=== PATIENT | male | born 1965 | race Caucasian/White ===

== ENCOUNTER 2017-03-24 10:20 | Day surgery (SDC) | payer MEDICARE, OTHER ==
[~2017-03-24] VITALS: Ht 177.8 cm; Wt 70.2 kg
[~2017-03-24 10:20] MED LIST: ALPR-475 PO; AMLO10TA2 PO; AMOX-291 PO; ASPI-496 PO; BACITRACIN 50,000 UNIT ONE; CALC0.25 PO; CARV-39 PO; CARV12.52 PO; CINA30TA2 PO; CLON0.1T PO; ERGO500017 PO; FEBU80TA2 PO; FOLI0.8T22 PO; FURO80TA3 PO; HEPARIN 1,000 UNITS/ML, 10ML ONE; HYDR-3240 PO; LOSA1TAB17 PO; OMEG1CAP6 PO; SERT100T5 PO; SEVE800T8 PO; SIMV20TA3 PO; [UNRECOGNIZED DRUG - REMARK]; metoprolol PO; vitamin D; zoloft
[2017-03-24 10:59] VITALS: BP 128/87
[2017-03-24] MEDS ORDERED: SODIUM CHLORIDE 0.9% 1,000 ML IV SCH (11:05)
[2017-03-24] MEDS ORDERED: OXYC10TA6 PO (11:36)
[2017-03-24] MEDS ORDERED: FENTANYL PF 100 MCG/2ML ONE ×3 (11:48→13:48)
[2017-03-24] MEDS ORDERED: MIDAZOLAM 1 MG/ML, 2ML ONE (11:49)
[2017-03-24 12:32] LABS: HEMATOCRIT 28.2 % (39.2-51.8); HEMOGLOBIN 9.5 g/dL (13.7-18.0); WHITE BLOOD COUNT 9.9 x10^3/uL (3.4-10)
[2017-03-24] MEDS ORDERED: EPHEDRINE 50 MG/ML, 1ML ONE (12:33)
[2017-03-24] MEDS ORDERED: CEFAZOLIN 1,000 MG ONE (12:33)
[2017-03-24] MEDS ORDERED: PHENYLEPHRINE 10 MG/ML ONE (12:33)
[2017-03-24] MEDS ORDERED: PROPOFOL 10 MG/ML, 20ML ONE (12:33)
[2017-03-24] MEDS ORDERED: SUCCINYLCHOLINE 20 MG/ML, 10ML ONE (12:33)
[2017-03-24] MEDS ORDERED: ROCURONIUM 10 MG/ML ONE (12:33)
[2017-03-24 12:49] LABS: ASPARTATE AMINO TRANSFERASE 7 U/L (15-37); BLOOD UREA NITROGEN 79 mg/dL (7-18)
[2017-03-24] MEDS ORDERED: BUPIVACAINE/EPI 0.5% 1:200K IM ONE (12:58)
[2017-03-24] MEDS ORDERED: METOCLOPRAMIDE 5 MG/ML, 2ML IV PRN (13:00)
[2017-03-24] MEDS ORDERED: OXYcodone 5 MG/5 ML ORAL.SOL UDC PO PRN (13:00)
[2017-03-24] MEDS ORDERED: HYDROmorphone 1 MG/ML, 1ML IV PRN (13:00)
[2017-03-24] MEDS ORDERED: hydrALAzine 20 MG/ML, 1ML IV PRN (13:00)
[2017-03-24] MEDS ORDERED: ONDANSETRON 2MG/ML, 2ML IVPush PRN (13:00)
[2017-03-24] MEDS ORDERED: LABETALOL 5MG/ML, 20ML IV PRN (13:00)
[2017-03-24] MEDS ORDERED: ACETAMINOPHEN 325 MG TABLET PO PRN (13:00)
[2017-03-24] MEDS ORDERED: ACETAMINOPHEN 650 MG/20.3 ML UDC ONE (13:47)
[2017-03-24] MEDS ORDERED: OXYcodone 5 MG/5 ML ORAL.SOL UDC ONE (13:48)
[2017-03-24] MEDS: FENTANYL PF 100 MCG/2ML IV PRN ×2 (13:53→14:01)
[2017-03-24] MEDS ORDERED: ONDANSETRON 2MG/ML, 2ML ONE (14:02)
== END 2017-03-24 15:20 ==
LOC: OUT 10:20
PROVIDERS: ATTEND Surgery Vascular Surgery
DX: K40.91 Unilateral inguinal hernia, without obstruction or gangrene, recurrent (principal); T82.590A Other mechanical complication of surgically created arteriovenous fistula, initial encounter; N18.6 End stage renal disease; Y83.8 Other surgical procedures as the cause of abnormal reaction of the patient, or of later complication, without mention of misadventure at the time of the procedure; Y92.89 Other specified places as the place of occurrence of the external cause; Z98.890 Other specified postprocedural states; Z99.2 Dependence on renal dialysis; Z83.3 Family history of diabetes mellitus; Z82.49 Family history of ischemic heart disease and other diseases of the circulatory system; Z87.891 Personal history of nicotine dependence; Z72.89 Other problems related to lifestyle
CPT/HCPCS: 36415; 49320; 49520; 80053; 85025; 85610; 85730; 93005; C1781; J0330; J0690; J2250; J2370; J2405; J2704; J3010; J7030; J1644

== ENCOUNTER 2019-06-17 14:18 | Inpatient (IN) | payer MEDICARE, OTHER ==
[~2019-06-17] VITALS: Ht 177.8 cm; Wt 67.4 kg
[~2019-06-17 14:18] MED LIST changes: -ALPR-475 PO; +ALPR0.5T7 PO; -AMLO10TA2 PO; +AMLO10TA8 PO; -BACITRACIN 50,000 UNIT ONE; -CLON0.1T PO; +CLON0.1T22 PO; -HEPARIN 1,000 UNITS/ML, 10ML ONE; -LOSA1TAB17 PO; +LOSA1TAB22 PO; +OXYC10TA6 PO; +SERT100T32 PO; -SERT100T5 PO
--- NOTE | 2019-06-17 14:50 | NUR ---
PT IS IN BED AT THIS TIME. LARGE BANDAGE OVER ABDOMEN. DIALYSIS TUBING PRESENT. PT STATES TUBING FELL OUT LAST NIGHT. HERE FROM [place]. BIG DATA ADMIN REQUESTED PT TO COME FOR AV FISTULA PLACEMENT. PER PT BIG DATA ADMIN DOES NOT WANT TO REPLACE TUBE.
[2019-06-17] MEDS ORDERED: SODIUM CHLORIDE FLUSH 10ML SYR IVF ONE (15:00)
[2019-06-17 15:14] LABS: BASOPHILS # (AUTO) 0.03 x10^3/uL (0-0.1); BASOPHILS % (AUTO) 0 % (0-1); EOSINOPHILS % (AUTO) 0 % (1-7); LYMPHOCYTES # (AUTO) 1.22 x10^3/uL (1-3.4); LYMPHOCYTES % (AUTO) 13 % (22-44); MD NO; MEAN CORPUSCULAR HEMOGLOBIN 31.6 pg (27.5-34.5); MEAN CORPUSCULAR HGB CONC 32.8 g/dL (33.2-36.2); MEAN CORPUSCULAR VOLUME 96.4 fL (81-97); MEAN PLATELET VOLUME 6.5 fL (7.4-10.4); MONOCYTES # (AUTO) 0.44 x10^3/uL (0.2-0.8); MONOCYTES % (AUTO) 5 % (2-9); NEUTROPHILS # (AUTO) 7.52 x10^3/uL (1.8-6.8); NEUTROPHILS % (AUTO) 82 % (42-75); PLATELET COUNT 307 x10^3/uL (130-400); RED BLOOD COUNT 3.41 x10^6/uL (4.38-5.82); RED CELL DISTRIBUTION WIDTH 15.6 % (9.4-14.8)
[2019-06-17 15:24] LABS: ALBUMIN 2.7 g/dL (3.4-5.0); ANION GAP 11 mmol/L (5-15); CALCIUM 9.3 mg/dL (8.5-10.1); CHLORIDE 98 mmol/L (98-107)
[2019-06-17] MEDS ORDERED: VANCOMYCIN PER PHARMACY MC PRN (16:00)
[2019-06-17] MEDS ORDERED: VANCOMYCIN 1,400 MG in SODIUM CHLORIDE 0.9% 250 ML IV ONE (16:30)
[2019-06-17] MEDS ORDERED: LABETALOL 5MG/ML, 20ML IVPush PRN (17:30)
[2019-06-17] MEDS ORDERED: DOCUSATE 100 MG CAPSULE PO PRN (17:30)
[2019-06-17] MEDS ORDERED: ONDANSETRON ODT 4 MG PO PRN (17:30)
[2019-06-17] MEDS ORDERED: hydrALAzine 20 MG/ML, 1ML IVPush PRN (17:30)
[2019-06-17] MEDS ORDERED: ACETAMINOPHEN 325 MG TABLET PO PRN (17:30)
[2019-06-17 18:36] VITALS: BP 136/90
[2019-06-17] MEDS ORDERED: FURO80TA77 PO (20:23)
[2019-06-17] MEDS ORDERED: LISI40TA PO (20:23)
[2019-06-17] MEDS ORDERED: GLUC500T11 PO (20:23)
[2019-06-17] MEDS ORDERED: ONDA4TAB7 PO (20:23)
[2019-06-17] MEDS ORDERED: [UNRECOGNIZED DRUG - CODE] PO (20:23)
[2019-06-17] MEDS ORDERED: POTA20TA14 PO (20:23)
[2019-06-17] MEDS ORDERED: LEVO75TA PO (20:23)
[2019-06-17] MEDS ORDERED: ONDANSETRON 4 MG TABLET PO PRN (23:00)
[2019-06-17] MEDS: SEVELAMER CARBONATE 800MG TAB PO SCH (23:09)
[2019-06-17] MEDS: CARVEDILOL 25 MG TABLET PO SCH (23:09)
[2019-06-17] MEDS: LISINOPRIL 40 MG TABLET PO SCH (23:09)
[2019-06-17] MEDS: ALPRAZOLAM MC SCH (23:14)
[2019-06-18 00:36] VITALS: BP 109/69
[2019-06-18 05:23] LABS: BASOPHILS # (AUTO) 0.03 x10^3/uL (0-0.1); BASOPHILS % (AUTO) 0 % (0-1); EOSINOPHILS % (AUTO) 0 % (1-7); LYMPHOCYTES # (AUTO) 1.78 x10^3/uL (1-3.4); LYMPHOCYTES % (AUTO) 22 % (22-44); MD NO; MEAN CORPUSCULAR HEMOGLOBIN 32.7 pg (27.5-34.5); MEAN CORPUSCULAR VOLUME 99.1 fL (81-97); MEAN PLATELET VOLUME 6.7 fL (7.4-10.4); MONOCYTES # (AUTO) 0.44 x10^3/uL (0.2-0.8); MONOCYTES % (AUTO) 6 % (2-9); NEUTROPHILS % (AUTO) 72 % (42-75); PLATELET COUNT 282 x10^3/uL (130-400); RED BLOOD COUNT 2.94 x10^6/uL (4.38-5.82)
[2019-06-18 05:31] LABS: CHLORIDE 98 mmol/L (98-107)
[2019-06-18 05:37] LABS: ANION GAP 10 mmol/L (5-15); CALCIUM 9.1 mg/dL (8.5-10.1)
[2019-06-18] MEDS ORDERED: LEVOTHYROXINE 75 MCG TABLET PO SCH (06:00)
[2019-06-18 06:45] VITALS: BP 109/71
[2019-06-18] MEDS ORDERED: FEBUXOSTAT 40 MG TABLET PO SCH (09:00)
[2019-06-18] MEDS ORDERED: MULTIVITS,STRESS FORMULA 1 TABLET PO SCH (09:00)
[2019-06-18] MEDS: SEVELAMER CARBONATE 800MG TAB PO SCH ×2 (09:00→12:49)
[2019-06-18] MEDS ORDERED: POTASSIUM CHLORIDE 20 MEQ TAB.ER.PRT PO SCH (09:00)
[2019-06-18] MEDS ORDERED: CINACALCET 30 MG TABLET PO SCH (09:00)
[2019-06-18] MEDS ORDERED: SERTRALINE 100MG TABLET PO SCH (09:00)
[2019-06-18] MEDS ORDERED: ASCORBIC ACID 500 MG TABLET PO SCH (09:00)
[2019-06-18] MEDS ORDERED: TEMPLATE NON-FORMULARY MED. (Glucosamine Hcl** 1,000 MG) PO SCH (09:00)
[2019-06-18] MEDS ORDERED: FUROSEMIDE 80 MG TABLET PO SCH (09:00)
[2019-06-18] MEDS: ALPRAZOLAM MC SCH (10:28)
[2019-06-18] MEDS: LISINOPRIL 40 MG TABLET PO SCH (10:43)
[2019-06-18] MEDS: CARVEDILOL 25 MG TABLET PO SCH (10:43)
[2019-06-18] MEDS ORDERED: FLUMAZENIL 0.1 MG/1 ML, 5ML ONE (11:22)
[2019-06-18] MEDS ORDERED: FENTANYL PF 100 MCG/2ML ONE (11:22)
[2019-06-18] MEDS ORDERED: MIDAZOLAM 1 MG/ML, 5ML ONE (11:22)
[2019-06-18] MEDS ORDERED: NALOXONE 1 MG/ML, 2ML ONE (11:22)
[2019-06-18] MEDS ORDERED: LIDOCAINE 1%, 10ML ONE ×2 (11:39→11:56)
[2019-06-18] MEDS ORDERED: HEPARIN 1,000 UNITS/ML, 10ML ONE (11:39)
[2019-06-18] MEDS ORDERED: VANCOMYCIN 500 MG in SODIUM CHLORIDE 0.9% 250 ML IVPB SCH (12:21)
[2019-06-18 12:42] VITALS: BP 114/75
[2019-06-18] MEDS ORDERED: GENTAMICIN 120 MG in SODIUM CHLORIDE 0.9% 100 ML IV SCH (16:00)
[2019-06-18] MEDS ORDERED: [UNRECOGNIZED DRUG - CODE] IV (16:07)
[2019-06-18] MEDS ORDERED: VANC1VIA3 IV (16:07)
[2019-06-18] MEDS ORDERED: SIMVASTATIN 20 MG TABLET PO SCH (21:00)
[2019-06-20] MEDS ORDERED: GENTAMICIN 60 MG in SODIUM CHLORIDE 0.9% 100 ML IV SCH (12:00)
[2019-06-20] MEDS ORDERED: VANCOMYCIN 500 MG in SODIUM CHLORIDE 0.9% 100 ML IVPB SCH (12:00)
== END 2019-06-19 05:00 | disposition home or self-care (01) | DRG 919 ==
LOC: ED 16:21 → EDIP 17:01 → 4WST 18:21
PROVIDERS: ADMIT Internal Medicine; ATTEND Internal Medicine
PROC: 5A1D70Z Performance of Urinary Filtration, Intermittent, Less than 6 Hours Per Day (ICD-10-PCS; principal; 2019-06-18)
PROC: 0JH63XZ Insertion of Tunneled Vascular Access Device into Chest Subcutaneous Tissue and Fascia, Percutaneous Approach (ICD-10-PCS; 2019-06-18)
PROC: 02HV33Z Insertion of Infusion Device into Superior Vena Cava, Percutaneous Approach (ICD-10-PCS; 2019-06-18)
PROC: B548ZZA Ultrasonography of Superior Vena Cava, Guidance (ICD-10-PCS; 2019-06-18)
PROC: B5181ZA Fluoroscopy of Superior Vena Cava using Low Osmolar Contrast, Guidance (ICD-10-PCS; 2019-06-18)
DX: T85.71XA Infection and inflammatory reaction due to peritoneal dialysis catheter, initial encounter (principal); N18.6 End stage renal disease; K65.2 Spontaneous bacterial peritonitis; I12.0 Hypertensive chronic kidney disease with stage 5 chronic kidney disease or end stage renal disease; T85.611A Breakdown (mechanical) of intraperitoneal dialysis catheter, initial encounter; D63.1 Anemia in chronic kidney disease; E03.9 Hypothyroidism, unspecified; E78.5 Hyperlipidemia, unspecified; F32.9 Major depressive disorder, single episode, unspecified; Y83.8 Other surgical procedures as the cause of abnormal reaction of the patient, or of later complication, without mention of misadventure at the time of the procedure; N25.0 Renal osteodystrophy; Y92.89 Other specified places as the place of occurrence of the external cause; Z87.891 Personal history of nicotine dependence; Z82.49 Family history of ischemic heart disease and other diseases of the circulatory system
CPT/HCPCS: 36415; 36558; 74018; 76937; 77001; 80048; 82040; 83735; 84100; 84443; 85025; 90935; 96374; 99156; 99157; G0378; J1644; J2250; J3010; J3370; C1750; J1580; J1642; J2310; J7050

== ENCOUNTER 2019-09-03 09:49 | Day surgery (SDC) | payer MEDICARE, OTHER ==
[~2019-09-03] VITALS: Ht 177.8 cm; Wt 74.9 kg
[~2019-09-03 09:49] MED LIST changes: +BUPIVACAINE/PF 0.5% ONE; +FURO80TA77 PO; +GLUC500T11 PO; +HEPARIN 1,000 UNITS/ML, 10ML ONE; +LEVO75TA PO; +LISI40TA PO; +ONDA4TAB7 PO; +POTA20TA14 PO; +PROTAMINE SULFATE 10 MG/ML, 5ML ONE; +SIMV20TA19 PO; -SIMV20TA3 PO; +VANC1VIA3 IV; +[UNRECOGNIZED DRUG - CODE] IV; +[UNRECOGNIZED DRUG - CODE] PO
[2019-09-03 10:52] VITALS: BP 175/113
[2019-09-03] MEDS ORDERED: LOSA25TA25 PO (11:04)
[2019-09-03] MEDS ORDERED: SODIUM CHLORIDE 0.9% 1,000 ML IV SCH (11:23)
[2019-09-03] MEDS ORDERED: hydrALAzine 20 MG/ML, 1ML IV ONE (11:30)
[2019-09-03] MEDS ORDERED: MIDAZOLAM 1 MG/ML, 2ML ONE (13:08)
[2019-09-03] MEDS ORDERED: FENTANYL PF 100 MCG/2ML ONE (13:09)
[2019-09-03] MEDS ORDERED: SUGAMMADEX 200 MG/2 ML IVPush ONE (14:12)
[2019-09-03] MEDS ORDERED: EPHEDRINE 50 MG/ML, 1ML ONE (14:14)
[2019-09-03] MEDS ORDERED: CEFAZOLIN 1,000 MG ONE (14:19)
[2019-09-03] MEDS ORDERED: NEOSTIGMINE 1 MG/ML, 10ML ONE (14:19)
[2019-09-03] MEDS ORDERED: PROPOFOL 10 MG/ML, 20ML ONE (14:19)
[2019-09-03] MEDS ORDERED: DEXAMETHASONE 4 MG/ML, 1ML ONE (14:19)
[2019-09-03] MEDS ORDERED: ROCURONIUM 10MG/ML,5ML ONE (14:19)
[2019-09-03] MEDS ORDERED: SUCCINYLCHOLINE 20 MG/ML, 10ML ONE (14:19)
[2019-09-03] MEDS ORDERED: ONDANSETRON 2MG/ML, 2ML ONE (14:19)
[2019-09-03] MEDS ORDERED: GLYCOPYRROLATE 0.2MG/1ML, 5ML ONE (14:19)
[2019-09-03] MEDS ORDERED: OXYcodone 5 MG/5 ML ORAL.SOL UDC PO PRN (14:30)
[2019-09-03] MEDS ORDERED: hydrALAzine 20 MG/ML, 1ML IV PRN (14:30)
[2019-09-03] MEDS ORDERED: PROMETHAZINE 25 MG/ML, 1ML IV PRN (14:30)
[2019-09-03] MEDS ORDERED: HALOPERIDOL 5 MG/ML IV PRN (14:30)
[2019-09-03] MEDS ORDERED: HYDROmorphone 2 MG/ML, 1ML IVPush PRN (14:30)
[2019-09-03] MEDS ORDERED: FENTANYL PF 100 MCG/2ML IV PRN (14:30)
[2019-09-03] MEDS ORDERED: LABETALOL 5MG/ML, 20ML IV PRN (14:30)
[2019-09-03] MEDS ORDERED: ALBUTEROL SULFATE 2.5 MG/3 ML NPPB PRN (14:30)
[2019-09-03] MEDS ORDERED: OXYcodone 5 MG/5 ML ORAL.SOL UDC ONE (14:39)
== END 2019-09-03 15:49 | disposition home or self-care (01) ==
LOC: OUT 09:49
PROVIDERS: ATTEND Surgery Vascular Surgery
DX: I12.0 Hypertensive chronic kidney disease with stage 5 chronic kidney disease or end stage renal disease (principal); N18.6 End stage renal disease; E78.5 Hyperlipidemia, unspecified; F12.90 Cannabis use, unspecified, uncomplicated; Z87.891 Personal history of nicotine dependence; Z79.899 Other long term (current) drug therapy
CPT/HCPCS: 36415; 36821; J0330; J0360; J0690; J1100; J1644; J2250; J2405; J2704; J2720; J3010; J7030; J2710